=== PATIENT | female | born 1975 | race Caucasian/White ===

== ENCOUNTER → 2020-11-24 12:50 | Outpatient (CLI) | payer BC, SELFPAY ==
--- NOTE | ~2020-11-24 | MM_ITS ---
EXAMINATION: MM screening isabel BI w rohit HISTORY: Screening mammogram TECHNIQUE: Craniocaudal and mediolateral oblique 3-D tomosynthesis images were obtained and synthetic 2-D images were generated. CAD analysis was submitted and interpreted. COMPARISON: No prior mammogram is available for comparison at this institution. BREAST PARENCHYMAL COMPOSITION: The breasts are almost entirely fatty. FINDINGS: There is a circumscribed 5 mm bilobed opacity in the lower outer right breast. Approximately 3 and 3.5 mm circumscribed opacities are noted at mid depth in the mid to upper upper o uter right breast. Otherwise there is no evidence of suspicious mass, calcification, or architectural distortion to sugg est malignancy in either breast. IMPRESSION: 1. Right breast masses 2. Diagnostic right mammogram and right breast ultrasound examination are recommended. BI-RADS Category 0: Incomplete: Needs additional imaging evaluation. Reviewed, dictated and finalized at location A. IMPRESSION: 1. Right breast masses 2. Diagnostic right mammogram and right breast ultrasound examination are recom mended. BI-RADS Category 0: Incomplete: Needs additional imaging evaluation.
== END ==
PROVIDERS: Visit Provider Obstetrics & Gynecology
DX: Z12.31 Encounter for screening mammogram for malignant neoplasm of breast (principal); R92.8 Other abnormal and inconclusive findings on diagnostic imaging of breast
CPT/HCPCS: 77063; 77067

== ENCOUNTER → 2020-12-27 08:16 | Outpatient (CLI) | payer BC, SELFPAY ==
--- NOTE | ~2020-12-27 | MMUS_ITS ---
EXAMINATION: MM diagnostic isbael RT w rohit, US breast RT limited HISTORY: Right breast masses on screening mammogram TECHNIQUE: Additional 3-D tomosynthesis images of the right breast were performed and synthetic 2-D i mages were generated. CAD analysis was submitted and interpreted. High resolution limited right breas t ultrasound was performed. COMPARISON: 11/24/2020 BREAST PARENCHYMAL COMPOSITION: There are scattered areas of fibroglandular density. FINDINGS: MAMMOGRAPHIC FINDINGS: There is a 6 mm oval, equal density mass in the anterior third of the outer breast at the 9:00 locati on 2.5 cm from the nipple which appears to demonstrate central fat. A 7 mm x 3 mm oval mass is presen t in the middle third of the upper outer quadrant of the breast at the 10:00 location 7.5 cm from the nipple which appears to be fat-containing as well. No suspicious calcification or architectural dist ortion are identified. ULTRASOUND: There are masses at the 9:00 location 3 cm from the nipple and the 11:00 location 9.5 cm from the nip ple which corresponds to the mammographic findings and are consistent with intramammary lymph nodes. No suspicious cystic or solid mass is identified. IMPRESSION: 1. No mammographic or sonographic evidence of malignancy. 2. Recommend routine screening mammography in one year. BI-RADS Category 2: Benign finding(s). Reviewed, dictated and finalized at location A. IMPRESSION: 1. No mammographic or sonographic evidence of malignancy. 2. Recommend routine screening mammography in one year. BI-RADS Category 2: Benign finding(s).
== END ==
PROVIDERS: PCP Family Medicine; Visit Provider Obstetrics & Gynecology
DX: R92.8 Other abnormal and inconclusive findings on diagnostic imaging of breast (principal)
CPT/HCPCS: 76642; 77061; 77065; G0279

== ENCOUNTER → 2021-03-27 14:28 | Outpatient (CLI) | payer BC, SELFPAY ==
--- NOTE | ~2021-03-27 | XR_ITS ---
XR lumbar spine min 4V DATE: 03/27/2021 14:55 INDICATION: Low back pain TECHNIQUE: AP, lateral, coned lateral lumbosacral and bilateral oblique views COMPARISON: None FINDINGS: Monitor is mild loss of interspace height and mild degenerative spurring of the lumbar inte rspaces. No fracture or bone destruction. The included lower thoracic and lumbar pedicles are intact. No spond ylolysis or spondylolisthesis. The sacroiliac joints are normal. There is a prominent amount of fecal material in the colon. IMPRESSION: Mild degenerative disc disease Reviewed, dictated and finalized at location B.
== END ==
PROVIDERS: PCP Family Medicine; Visit Provider Family Medicine
DX: M47.816 Spondylosis without myelopathy or radiculopathy, lumbar region (principal)
CPT/HCPCS: 72110

== ENCOUNTER 2021-03-29 06:08 | Emergency (ER) | payer BC, SELFPAY ==
[2021-03-29 06:12] VITALS: BP 147/81; PULSE 98; RESP 16; TEMP 36.3; O2SAT 98
[2021-03-29] MEDS: KETOROLAC 30 MG/ML VIAL (*BKC) IM (07:21)
--- NOTE | 2021-03-29 07:58 | ED.BACK ---
HPI - Back Pain/Injury General Chief Complaint: Back Pain/Injury Stated Complaint: back pain Time Seen by Provider: 03/29/21 06:54 Source: patient History of Present Illness HPI Narrative: Patient presents with right-sided low back pain. Patient mirthas she was hiking over the weekend had no issues but then got in the car and drove home for 2 hours after the car ride she noted low back pain. Her symptoms got worse saw her primary care doctor had plain films which showed mild degenerative disc disease. Her primary care started her on muscle relaxers she is only taken 1 dose. She has been attempting Aleve and home stretches 1 time. Feels like her pain is getting worse that she will become evaluated. Her pain is achy, constant, worse with moving her back, no radiation. She denies recent spinal inspiration, IV drug use, major change in weight. Related Data Allergies Allergy/AdvReac Type Severity Reaction Status Date / Time No Known Allergies Allergy Verified 03/29/21 06:25 Review of Systems Review of Systems: CONSTITUTIONAL: Denies fever, chills, or sweats. EYES: Denies visual changes, redness, or discharge. ENT: Denies rhinorrhea, congestion, sore throat, or otalgia. CARDIOVASCULAR: Denies chest pain, palpitations, or edema. RESPIRATORY: Denies cough or dyspnea. GASTROINTESTINAL: Denies abdominal pain, nausea, vomiting, or diarrhea. GENITOURINARY: Denies dysuria or hematuria. SKIN: Denies rash or itching. MUSCULOSKELETAL: Denies joint pain, or myalgia. NEUROLOGIC: Denies headache, numbness, dizziness, or weakness. PSYCHIATRIC: Denies anxiety or depression. All systems reviewed & are unremarkable except as noted in HPI and below PMFSH Past Medical History Medical History Depression Hypothyroidism Family History Family History Mother Family history of bipolar disorder Father Hypertension Social History Social History Smoking status: Never smoker Second hand tobacco smoke exposure: No Alcohol intake: never Substance use: never Substance use type: does not use Gender identity (if verbalized by the patient): Female Exam Narrative: GENERAL: Well-appearing, well-nourished, and in no acute distress. HEAD: Normocephalic, atraumatic. EYES: PERRLA and EOMI. ENT: Nares clear, no rhinorrhea or epistaxis. Mucous membranes moist. NECK: Supple. No masses. No JVD BACK: Diffuse low back pain right with palpation most prominent in the right lumbar paraspinal area EXTREMITIES: Normal range of motion. No edema. SKIN: Warm, dry, no rash. NEURO: No focal deficits. Alert and oriented x3. PSYCH: Normal mood and affect. Course Reevaluation(s) Reevaluation #1: Patient ports feeling improved. Patient comfortable outpatient plan. Date: 03/29/21 Time: 07:58 Vital Signs Vital signs: Vital Signs Temperature 36.3 C L 03/29/21 06:12 Pulse Rate 98 03/29/21 06:12 Respiratory Rate 16 03/29/21 06:12 Blood Pressure 147/81 H 03/29/21 06:12 Pulse Oximetry 98 03/29/21 06:12 Temperature 36.3 C L 03/29/21 06:12 Pulse Rate 94 03/29/21 08:28 Respiratory Rate 17 03/29/21 08:28 Blood Pressure 123/91 H 03/29/21 08:28 Pulse Oximetry 99 03/29/21 08:28 MDM - Back Pain/Injury MDM Narrative Medical decision making narrative: H&P as above, vss, pt looks clinically well, exam without focal neurological deficits, labs/img considered, symptomatic relief available as needed, on reevaluation pt continues to looks clinically well. Suspect muscle strain, dns cauda equina, fracture, conus medullaris, cord compromise. plan to tx/monitor as op w/ pcm f/u findings/plan discussed with pt, pt agree/comfortable with plan, return precautions given Discharge Plan Discharge Clinical Impression: Low back pain Qualifiers: Chronicity: acute Back pain laterality:
[2021-03-29 08:28] VITALS: BP 123/91; PULSE 94; RESP 17; O2SAT 99
== END 2021-03-29 08:30 | disposition home or self-care (01) ==
PROVIDERS: Emergency Provider Emergency Medicine; PCP Family Medicine
DX: S39.012A Strain of muscle, fascia and tendon of lower back, initial encounter (principal); E03.9 Hypothyroidism, unspecified; X58.XXXA Exposure to other specified factors, initial encounter
CPT/HCPCS: 96372; 99283; J1885

== ENCOUNTER → 2023-03-03 12:16 | Outpatient (CLI) | payer OTHER, SELFPAY ==
--- NOTE | ~2023-03-03 | MM_ITS ---
EXAMINATION: MM screening isabel BI w rohit HISTORY: Screening TECHNIQUE: Craniocaudal and mediolateral oblique 3-D tomosynthesis images were obtained and synthetic 2-D images were generated. CAD analysis was submitted and interpreted. COMPARISON: Comparison to multiple prior studies sequentially, with oldest reviewed study dated 11/24. BREAST PARENCHYMAL COMPOSITION: There are scattered areas of fibroglandular density. FINDINGS: Stable appearance to benign-appearing lymph nodes outer aspect of the right breast. There i s no evidence of suspicious mass, calcification, or architectural distortion to suggest malignancy in either breast. There has been no suspicious interval change. IMPRESSION: 1. No mammographic evidence of malignancy. 2. Recommend routine screening mammography in one year. BI-RADS Category 1: Negative Reviewed, dictated and finalized at location A.
== END ==
PROVIDERS: PCP Family Medicine; Visit Provider Obstetrics & Gynecology
DX: Z12.31 Encounter for screening mammogram for malignant neoplasm of breast (principal)
CPT/HCPCS: 77063; 77067

== ENCOUNTER 2023-09-04 05:48 | Day surgery (SDC) | payer OTHER, SELFPAY ==
[2023-08-06 15:02] VITALS: BMI 29.7
[2023-08-21 14:05] VITALS: BMI 29.1
--- NOTE | 2023-09-03 10:54 | P.PNAN_ITS ---
Anes - Initial Pre Proc Eval Procedure: Operation Date: 09/04/23 07:30 Proposed Procedures p Screening Colonoscopy - Kirby Batista MD Date/Time: 09/03/23 10:54 Surgeon: Kirby Batista MD Pre Op Diagnosis: Neoplasm Screening Patient Data Age: 48 Gender: F Height: 1.63 m Weight: 77 kg Allergies Allergy/AdvReac Type Severity Reaction Status Date / Time No Known Allergies Allergy Verified 09/04/23 06:14 Home Medications Medication Instructions Recorded Confirmed Type levothyroxine 175 mcg tablet 175 mcg PO DAILY #90 tabs 06/10/23 09/04/23 Rx Patient hx anesthesia problems: none Family hx anesthesia problems: none Results Review: All pre-operative results and documents have been reviewed as part of the pre- operative evaluation. [facility] Past Medical History Medical History Depression Hypothyroidism Family History Family History Mother Family history of bipolar disorder Father Hypertension Social History Social History Smoking status: Never smoker Second hand tobacco smoke exposure: No Alcohol intake: never Substance use: never Substance use type: does not use Lack of Transportation: No Lack of Food: Never True Current Housing: I Have Housing Concerned About Future Housing: No Difficulty Paying Gas/Electric Bills: No Difficulty Paying for Meds: No Currently Unemployed: No Education: Bachelor's Degree Difficulty w/ Childcare or Family Care: No Living arrangements: with family Gender identity (if verbalized by the patient): Female Spiritual care concerns: No Anes - Eval Final PreProcedure Day of Procedure 09/03/23 10:54 Patient weight: overweight Heart: regular rate and rhythm Lungs: clear to auscultation Airway: Mallampati scale class II Neurological: alert and oriented Last oral intake: >/= 8 hours ASA classification: II Emergent: no Anesthetic plan: proceed Anesthesia type and monitoring: general GIVS and standard monitoring Results Review: All pre-operative results and documents have been reviewed as part of the pre-o perative evaluation. Informed Consent: The patient's anesthetic plan and its attendant risks and benefits were discussed with the patient/family/POA. Questions were solicited and answers provided to the satisfaction of the patient/family/POA.
[2023-09-04 06:21] VITALS: BP 135/84; PULSE 86; RESP 16; TEMP 37.3; O2SAT 100; BMI 29.7
[2023-09-04] MEDS: LACTATED RINGERS 1,000 ML 150 ML IV CONT (06:36)
--- NOTE | 2023-09-04 07:07 | PM.HPGS ---
History of Present Illness History of Present Illness Consent: Risks, benefits, and alternatives have been discussed and questions answered. Patient agrees to proceed with procedure. Chief complaint: Neoplasm Screening Narrative: Harpal Felton is a 48 year old female colonoscopy. Patient's current weight appetite at this are normal. She denies abdominal pain. She has had no bleeding. Family history significant her brother had colon polyps. Review of Systems Review of Systems: Review of systems noncontributory. PMFSH Past Medical History Medical History Depression Hypothyroidism Family History Family History Mother Family history of bipolar disorder Father Hypertension Social History Social History Smoking status: Never smoker Second hand tobacco smoke exposure: No Alcohol intake: never Substance use: never Substance use type: does not use Lack of Transportation: No Lack of Food: Never True Current Housing: I Have Housing Concerned About Future Housing: No Difficulty Paying Gas/Electric Bills: No Difficulty Paying for Meds: No Currently Unemployed: No Education: Bachelor's Degree Difficulty w/ Childcare or Family Care: No Living arrangements: with family Gender identity (if verbalized by the patient): Female Spiritual care concerns: No Meds Home Medications and Allergies Home Medications Medication Instructions Recorded Confirmed Type levothyroxine 175 mcg tablet 175 mcg PO DAILY #90 tabs 06/10/23 09/04/23 Rx Allergies Allergy/AdvReac Type Severity Reaction Status Date / Time No Known Allergies Allergy Verified 09/04/23 06:14 Vital Signs Vital Signs - 24 hr 09/04/23 06:21 Temperature 99.2 F Pulse Rate 86 Respiratory Rate 16 Blood Pressure 135/84 Pulse Oximetry 100 Oxygen Delivery Room Air Exam Narrative: Physical exam reveals patient to be alert. Vital signs stable. HEENT exam is unremarkable. Patient is anicteric.Lungs are clear to auscultation and percussion. Heart is without murmur or extra sounds. Abdomen bowel sounds are present soft nontender with no hepatosplenomegaly. Digital , external exam is normal. Assessment and Plan Assessment and plan (1) Encounter for screening colonoscopy: Code(s): Z12.11 - Encounter for screening for malignant neoplasm of colon Status: Acute Assessment and Plan: Patient presents today for screening colonoscopy. Further recommendations may be given after exam.
[2023-09-04 07:40] VITALS: BP 106/67; PULSE 80; RESP 18; O2SAT 100
[2023-09-04 07:50] VITALS: BP 110/71; PULSE 74; RESP 16; O2SAT 100
[2023-09-04 08:00] VITALS: BP 119/72; PULSE 74; RESP 16; O2SAT 100
--- NOTE | 2023-09-04 11:09 | WPDANESPN ---
Anes - Prog Note Post-Op Date/Time: 09/04/23 11:09 Cardiovascular status: normal Respiratory status: normal Airway patency: baseline Mental status: baseline Post-Op hydration status: normal Vital Signs: Last Vital Signs Temp 37.3 C 09/04/23 06:21 Pulse 74 09/04/23 08:00 Resp 16 09/04/23 08:00 BP 119/72 09/04/23 08:00 Pulse Ox 100 09/04/23 08:00 O2 Del Method Room Air 09/04/23 08:00 Pain Score (VAS): 0 I/O: Intake & Output 09/03/23 09/04/23 09/04/23 23:59 07:59 15:59 Intake Total 400 Balance 400 Post-procedural complaints: none Patient Feedback: Patient satisfied with anesthetic care. Other Findings: Patient vital signs back to baseline. Patient denies nausea and vomiting. Patient's pain under control. Patient OK for discharge.
== END 2023-09-04 08:06 | disposition home or self-care (01) ==
PROVIDERS: PCP Physician Assistant; Visit Provider Internal Medicine Gastroenterology
PROC: 0DJD8ZZ Inspection of Lower Intestinal Tract, Via Natural or Artificial Opening Endoscopic (ICD-10-PCS; CPT 45378; principal; 2023-09-04 07:30)
DX: Z12.11 Encounter for screening for malignant neoplasm of colon (principal); Z83.718 Family history of other colon polyps
CPT/HCPCS: 45378

== ENCOUNTER 2024-03-17 15:17 | Emergency (ER) | payer OTHER, SELFPAY ==
--- NOTE | 2024-03-17 15:21 | ED.BACK ---
HPI - Back Pain/Injury General Chief Complaint: Urogenital-Female Stated Complaint: Back Pain Time Seen by Provider: 03/17/24 15:20 Source: patient Mode of arrival: ambulatory Limitations: no limitations History of Present Illness HPI Narrative: Patient is a 48-year-old female who presents with right low back pain that started week ago after doing heavy lifting. Patient treated for muscle strain and symptoms improved. Patient states Friday symptoms returned. Got better throughout the day. Patient has hx of kidney stones. Denies any blood in urine, frequency, burning with urination. Patient states she drinks large amounts of water. Related Data Allergies Allergy/AdvReac Type Severity Reaction Status Date / Time No Known Allergies Allergy Verified 03/17/24 15:25 Review of Systems Review of Systems: All systems reviewed & are unremarkable except as noted in HPI and below Constitutional: Constitutional: Denies body ache(s), Denies chills, Denies fatigue, Denies fever(s), Denies headache(s), Denies malaise and Denies weakness Eyes: Eyes: Denies blurry vision, Denies irritation and Denies loss of vision ENT: Denies otalgia, Denies headache(s), Denies nasal discharge, Denies sinus pain and Denies sore throat Cardiovascular: Cardiovascular: Denies chest pain, Denies irregular heart rhythm and Denies dyspnea Respiratory: Respiratory: Denies dyspnea Gastrointestinal: Gastrointestinal: Denies abdominal pain, Denies melena, Denies hematochezia, Denies diarrhea, Denies nausea and Denies vomiting Musculoskeletal: Musculoskeletal: Reports back pain, Denies myalgias and Denies arthralgias Integumentary/Breasts: Skin/Breast: Denies pruritus and Denies rash Neurologic: Denies headache(s), Denies loss of vision and Denies weakness Psychiatric: Psychiatric: Reports no additional psychiatric complaints Endocrine: Endocrine: Denies fatigue PMFSH Past Medical History Medical History Depression Hypothyroidism Family History Family History Mother Family history of bipolar disorder Father Hypertension Social History Social History Smoking status: Never smoker Second hand tobacco smoke exposure: No Alcohol intake: never Substance use: never Substance use type: does not use Lack of Transportation: No Lack of Food: Never True Current Housing: I Have Housing Concerned About Future Housing: No Difficulty Paying Gas/Electric Bills: No Difficulty Paying for Meds: No Currently Unemployed: No Education: Bachelor's Degree Difficulty w/ Childcare or Family Care: No Living arrangements: with family Gender identity (if verbalized by the patient): Female Spiritual care concerns: No Comments At time of signature, agree with nursing past medical, surgical, social and family history. There is no relevant family history pertinent to the presenting complaint. Exam Const: General: cooperative, healthy appearing, comfortable, no acute distress and well nourished Nutritional Appearance: well nourished Orientation/consciousness: patient oriented x3 Limitations: no limitations HENMT: Head: normal to inspection, normocephalic and atraumatic Ears: hearing grossly normal bilaterally and external ears normal Face/Nose/Sinus: Normal external nose present, normal facial exam and face symmetric Face and sinus: normal facial exam and face symmetric Mouth: Yes lip normal Eyes: General: appearance normal, both eyes and all related structures Alignment and Position: alignment normal and position normal Periorbital: periorbital findings normal Eyelids: eyelids normal Pupils: Equal, round and reactive pupils present EOM: EOMs intact bilaterally Neck: Neck: normal visual inspection, full ROM and supple Chest: Chest palpation & inspection: normal insp
[2024-03-17 15:29] VITALS: BP 161/79; PULSE 95; RESP 18; TEMP 36.9; O2SAT 100
[2024-03-17 15:38] LABS: EDUAAPPEAR Cloudy; EDUABILI Negative (Negative); EDUABLOOD Negative (Negative); EDUACOLOR1 Yellow; EDUAGLUCOSE Trace (Negative); EDUAKETONE Negative (Negative); EDUALEUKO Trace (Negative); EDUANITRATE Negative (Negative); EDUAPH 6.5; EDUAPROTEIN Negative (Negative); EDUAUROBILI 0.2
== END 2024-03-17 16:22 | disposition home or self-care (01) ==
PROVIDERS: Emergency Provider Nurse Practitioner Family; PCP Family Medicine
DX: S39.012A Strain of muscle, fascia and tendon of lower back, initial encounter (principal); X58.XXXA Exposure to other specified factors, initial encounter; N30.00 Acute cystitis without hematuria; E03.9 Hypothyroidism, unspecified
CPT/HCPCS: 81003; 99213; G0463

== ENCOUNTER 2024-07-23 08:10 | Emergency (ER) | payer OTHER, SELFPAY ==
[2024-07-23 08:23] VITALS: BP 127/82; PULSE 75; RESP 16; TEMP 35.6; O2SAT 100
--- NOTE | 2024-07-23 08:25 | ED_ITS ---
HPI - URI/Sore Throat General Stated Complaint: cough,night sweats Time Seen by Provider: 07/23/24 08:25 Source: patient, RN notes reviewed and old records reviewed Mode of arrival: ambulatory Limitations: no limitations History of Present Illness HPI Narrative: Patient presents with complaints of flu-like symptoms for approximately 1 week, night sweats and cough for 2 nights. Reports that this morning while in the shower she had a syncopal episode, reports that her heard a ?thud? and came to check on her. She reports that upon awakening she felt better, denies any injury. No deficits. Related Data Allergies Allergy/AdvReac Type Severity Reaction Status Date / Time No Known Allergies Allergy Verified 03/17/24 15:25 Review of Systems Review of Systems: All systems reviewed & are unremarkable except as noted in HPI and below Constitutional: Constitutional: Reports no additional constitutional complaints, Reports excessive sweating and Reports lethargy ENT: Reports system reviewed and no additional complaints, except as documented Cardiovascular: Cardiovascular: Reports no additional cardiovascular complaints Respiratory: Respiratory: Reports no additional respiratory complaints, Reports chest congestion and Reports cough Gastrointestinal: Gastrointestinal: Reports no additional gastrointestinal complaints Neurologic: Reports syncope [facility] Past Medical History Medical History Depression Hypothyroidism Family History Family History Mother Family history of bipolar disorder Father Hypertension Social History Social History Smoking status: Never smoker Second hand tobacco smoke exposure: No Alcohol intake: never Substance use: never Substance use type: does not use Lack of Transportation: No Lack of Food: Never True Current Housing: I Have Housing Concerned About Future Housing: No Difficulty Paying Gas/Electric Bills: No Difficulty Paying for Meds: No Currently Unemployed: No Education: Bachelor's Degree Difficulty w/ Childcare or Family Care: No Living arrangements: with family Gender identity (if verbalized by the patient): Female Spiritual care concerns: No Comments At the time of my signature, I reviewed and agree with the nursing past medical, surgical, social, and family history. There is no relevant family history pertinent to the patient complaint. Exam Const: General: cooperative, no acute distress, alert and awake Orientation/consciousness: oriented to person, oriented to place and oriented to time HENMT: Head: normal to inspection Resp: Effort & Inspection: normal respiratory effort and able to speak in complete sentences Neuro: General: oriented to person, oriented to place and oriented to time Cranial nerves: Yes CN's II-XII intact bilaterally Cognition (Neuro): normal cognition Speech: normal speech Gait exam (Neuro): Normal gait present Psych: Appearance: grossly normal Thought process: Normal thought process present Insight: Good insight present (Psych) Judgement: Good judgement present (Psych) Course Course Level of Care: Express Care Visit Vital Signs Vital signs: Vital Signs Temperature 96.1 F L 07/23/24 08:23 Pulse Rate 75 07/23/24 08:23 Respiratory Rate 16 07/23/24 08:23 Blood Pressure 127/82 07/23/24 08:23 Pulse Oximetry 100 07/23/24 08:23 Oxygen Delivery Room Air 07/23/24 08:23 Temperature 96.1 F L 07/23/24 08:23 Pulse Rate 75 07/23/24 08:23 Respiratory Rate 16 07/23/24 08:23 Blood Pressure 127/82 07/23/24 08:23 Pulse Oximetry 100 07/23/24 08:23 Oxygen Delivery Room Air 07/23/24 08:23 Reviewed Transfer Transfered to: [facility] Transportation: Other (Private vehicle, driven by ) Transfer rationale: Syncopal episode, needs higher level of care Accepting physician: Thomas MDM - URI/Sore Throat MDM Narrative Medical decision making narrative: Patient with flu-like symptoms for 1 week, syncopal episode this morning. Transferred to emergency department for further workup Differential Diagnosis Differential diagnosis: Likely upper respiratory infection, viral infection and influenza Medical Records Attestation: I reviewed the patient's medical records. Discharge Plan Discharge Clinical Impression: Syncope Qualifiers: Syncope type: unspecified Qualified Code(s): R55 - Syncope and collapse Patient Disposition: Acute Care Hospital Condition: Stable Instructions: Antibiotic Form Patient Language: Maltese Prescriptions: No Action prednisone 20 mg tablet 40 mg PO DAILY 5 Days Qty: 10 0RF baclofen 10 mg tablet 10 mg PO BID Qty: 10 0RF nitrofurantoin monohyd/m-cryst 100 mg capsule 100 mg PO Q12H 5 Days Qty: 10 0RF Rx Instructions: must administer with a meal/food lidocaine 5 % adhesive patch,medicated 1 patch topical DAILY Qty: 15 0RF Rx Instructions: leave on most painful area for up to 12 hrs levothyroxine 175 mcg tablet 175 mcg PO DAILY Qty: 90 2RF Follow-up/Referrals: Francoise Phan MD [Primary Care Provider] - Time of Disposition: 08:48
== END 2024-07-23 08:40 | disposition short-term general hospital (02) ==
PROVIDERS: Emergency Provider Nurse Practitioner Family; PCP Family Medicine
DX: R55 Syncope and collapse (principal); E03.9 Hypothyroidism, unspecified
CPT/HCPCS: 99212; G0463

== ENCOUNTER 2024-07-23 08:59 | Emergency (ER) | payer OTHER, SELFPAY ==
[2024-07-23] VITALS (9 sets, daily range): BP systolic 131–161; BP diastolic 70–96; PULSE 68–89; RESP 14–18; TEMP 36.5–36.7; O2SAT 98–100
--- NOTE | ~2024-07-23 | XR_ITS ---
EXAMINATION: XR chest 2V DATE: 07/23/2024 12:34 INDICATION: Syncope, fever, body aches and chills TECHNIQUE: PA and lateral views of the chest were obtained. COMPARISON: None FINDINGS: The lungs are clear with no focal airspace opacities, pulmonary edema, pleural effusion or pneumothor ax. The cardiomediastinal silhouette is normal. Mild thoracic spondylosis. IMPRESSION: 1. No acute cardiopulmonary disease. Reviewed, dictated and finalized at location B. NIC CONDITION NURSE
--- OUTSIDE RECORDS SUMMARY | 2024-07-23 09:21 | XMS_ITS | Data Portability ---
Author Organization [facility] Address [address] [place] [place] [address] Care Team Providers Care Furnace Helper Name Role Phone CL GALLO Primary Care Provider Assessment Encounter Date Assessment Date Assessment LastModified by Organization Details LastModified Time 11/07/2020 11/07/2020 healthy female exam patient declines std testing pap done- LEEP in 2015 mammogram ordered and encouraged contraceptionc ondomsm FU 1 year or prn [email or web address] Not available 11/08/2020 09:39:35 08/30/2022 08/30/2022 healthy female exam patient declines std testing pap done, if normal may do q 3 mammogram ordered and encouraged discussed colonoscopy rec, pt to discuss with PCP contraception- condoms FU 1 year or prn [email or web address] Not available 09/09/2022 21:50:28 Plan of Treatment Reminders Order Date Submit Date Provider Last Modified By Organization Details Last Modified Time Details Appointments None record ed. Lab None record ed. Referral None record ed. Procedures None record ed. Surgeries None record ed. Imaging None record ed. Medication Orders None record ed. Patient TargetsNo targets recorded. Patient InstructionsNo instructions recorded. Reason for Referral None Reported. Results Created Date Observation Date Name Description Value Unit Range Abnormal Flag Note LastModifiedBy Organization Detail LastModifiedTime 11/10/19 21 11/09/2020 pap, IG + HR HPV image guided Pap, HPV regardless of Pap result SEE RESULT S BELOW CASE REPOR T: Cytol ogy Gynec ologi laura Repor t Case: [id number] Autho gita bueno Provi jackie: Melanie Naylor MD Colle cted: 11/09 1642 Order ing Locat ion: [place] [facility] log[place]jah Recei kathryn: 11/10 0045 First Scree n: Miller velasquez Laura Speci men: Scree jose g Pap - Image d, Cervi x STATE MENT OF ADEQU ACY: Satis facto ry for evalu ation Trans forma tion zone compo nent absen t FINAL DIAGN OSIS: Negat merissa for Intra epith elial Lesio n or Malig nathanael Elect antonia villarreal reji d by Laura Cope on 2020 at 2:24 PM ----- ----- ----- ----- ----- ----- ----- ----- ----- ----- ----- ----- ----- ----- ----- ----- ----- ---- HPV RESUL TS: HPV mRNA E6/E7 : No HPV mRNA Detec tarun NOTE: This high risk HPV mRNA assay detec ts fourt een high- risk HPV types (16, 18, 31, 33, 35, 39, 45, 51, 52, 56, 58, 59, 66, 68) witho ut diffe renti ation . CHART ABLE COMME NT: Note: This speci men was revie wed by a Cytot echno logis t and/o r Patho logis t (as indic ated in this repor t) after evalu ation using the Thinp rep Imagi ng Syste m. CLINI LAURA INFOR MATIO N: Menst rual Statu s: LMP (if appli cable ): Clini laura Histo ry/Pr eviou s Pap: Type of Neopl latasha (if appli cable ): Other Histo ry: Hormo maite (if appli cable ): PAP EDUCA ALE L NOTE: The Pap Test is a scree jose g test with an inher ent false negat merissa rate. Liqui d-bas e sampl ing may decre ase, but will not elimi ulisses, false negat merissa resul ts. A negat merissa resul t does not precl ude the prese nce and/o r devel opmen t of disea se, since the prese nce of abnor mal cells in the sampl e depen ds on the locat ion of the jonaio n and sampl ing techn ique. Cristopher nued regul ar gayle araiza is the best metho d of cance r preve ntion . If repor tarun cytol ogic findi ng do not corre late with physi laura and/o r histo rical findi ngs, furth er inves tigat ion is recom lyly d, as clini rob juan nted. Not Available [facility] (Lab) [address], [place], [address], 11/10/2020 15:27:07 08/31/19 23 08/30/2022 IMAGE GUIDE D PAP AND HPV REGAR DLESS image guided Pap, HPV regardless of Pap result SEE RESULT S BELOW CASE REPOR T: Cytol ogy Gynec ologi laura Repor t Case: [id number] Autho gita bueno Provi jackie: Melanie Naylor MD Colle cted: 08/30 1553 Order ing Locat ion: [place] Patho logy Recei kathryn: 09/02 0835 First Gayle n: Jorge Oliveros am, CT Speci men: Gayle araiza Pap - Image d, Cervi x STATE MENT OF ADEQU ACY: Satis facto ry for evalu ation Trans forma tion zone compo nent prese nt FINAL DIAGN OSIS: Negat merissa for Intra epith elial Justus herzog or Bernabe huffman (NIL) . Elect antonia villarreal reji d by Jorge Oliveros am, CT on 2022 at 9:23 AM ----- ----- ----- ----- ----- ----- ----- ----- ----- ----- ----- ----- ----- ----- ----- ----- ----- ---- HPV RESUL TS: HPV mRNA E6/E7 : No HPV mRNA Detec tarun NOTE: This high risk HPV mRNA assay detec ts fourt een high- risk HPV types (16, 18, 31, 33, 35, 39, 45, 51, 52, 56, 58, 59, 66, 68) witho ut diffe renti ation . COMME NT: This speci men was revie wed by a Cytot echno logis t and/o r Patho logis t (as indic ated in this repor t) after evalu ation using the Thinp rep Imagi ng Syste m. CLINI LAURA INFOR MATIO N: Menst rual Statu s: LMP (if appli cable ): Clini laura Histo ry/Pr eviou s Pap: Type of Neopl latasha (if appli cable ): Signi fican t Clini laura Findi ngs: Other Histo ry: Hormo maite (if appli cable ): PAP EDUCA ALE L NOTE: The Pap Test is a scree jose g test with an inher ent false negat merissa rate. Liqui d-bas ed sampl ing may decre ase, but will not elimi ulisses, false negat merissa resul ts. A negat merissa resul t does not precl ude the prese nce and/o r devel opmen t of disea se, since the prese nce of abnor mal cells in the sampl e depen ds on the locat ion of the lesio n and sampl ing techn ique. Cristopher nued regul ar scree jose g is the best metho d of cance r preve ntion . If repor tarun cytol ogic findi ng do not corre late with physi laura and/o r histo rical findi ngs, furth er inves tigat ion is recom lyly d, as clini rob martinez nted. Not Available [facility] (Lab) [address], [place], [address], 09/04/2022 10:26:16 11/25/19 21 11/24/2020 MAMMO , scree jose g, bilat eral No observ ation record ed. J[facility] [address], [place], [address], 11/29/2020 09:21:11 11/25/19 21 11/24/2020 MAMMO , scree jose g, bilat eral No observ ation record ed. layran [facility] [address], [place], [address], 11/28/2020 14:34:50 12/28/19 21 12/27/2020 MAMMO , diagn ostic , digit al, unila teral No observ ation record ed. [facility] [address], [place], [address], 12/28/2020 15:47:59 03/03/20 23 03/03/2023 MAMMO , scree jose g, bilat eral No observ ation record ed. [email or web address] [facility] [address], [place], [address], 04/14/2023 14:23:31 Result Notes None recorded. Problems Name Problem SNOMED Code Status Onset Date Resolution Date Notes Provider Name and Address Organization Details Recorded Time Pregnanc y test negative 373008239 Completed 201811/07/2020 Encounte r for pregnanc y test, result negative ;Practic e ID: 0001 Melanie Montgomery MD [address], [place], [address], [facility] 1 17:38:16 Atypical squamous cells of undeterm ined signific ance on cervical Papanico laou smear 165428283 Active 2018 Atyp squam cell of undet signfc cyto smr crvx (ASC-US) ;Practic e ID: 0001 Not Available [facility] 0 18:59:16 Human papillom avirus deoxyrib onucleic acid detected , high risk on cervical specimen 216953490 Active 2018 Cervical high risk HPV DNA test positive ;Practic e ID: 0001 Not Available [facility] 0 18:59:16 Finding of menstrua l bleeding Completed 201811/07/2020 Excessiv e and frequent menstrua tion with regular cycle;Pr actice ID: 0001 Melanie Montgomery MD [address], [place], [address], [facility] 1 17:37:59 Screenin g for malignan t neoplasm of rectum Completed 201811/07/2020 Encounte r for screenin g for malignan t neoplasm of rectum;P ractice ID: 0001 Melanie Montgomery MD [address], [place], [address], [facility] 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 1 17:38:27 Low risk human papillom avirus deoxyrib onucleic acid detected in specimen from cervix [id number] 0688726 Completed 201611/07/2020 Cervical low risk HPV DNA test positive ;Practic e ID: 0001 Melanie Montgomery MD [address], [place], [address], [facility] 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 1 17:38:13 Speciali zed medical examinat ion Completed 201211/07/2020 Routine gynecolo gical examinat ion;Prac tran ID: 0001 Melanie Montgomery MD [address], [place], [address], [facility] 17:38:29 Screenin g for malignan t neoplasm of cervix Completed 201111/07/2020 Pap Smear;Pr actice ID: 0001 Melanie Montgomery MD [address], [place], [address], [facility] 17:38:19 Acquired deformit y of neck 74360425 Completed 201511/07/2020 Acquired deformit y of neck;Rec orded Elsewher e: No [facility] S ource: EHR Securities Adviser marilyn: N Practi ce ID: 0001 Colten lable Time: 09:30:00 AM Melanie Montgomery MD [address], [place], [address], [facility] 17:37:40 Microsco pic hematuri a 394967880 Completed 201511/07/2020 Other microsco pic hematuri a;Practi ce ID: 0001 Melanie Montgomery MD [address], [place], [address], [facility] 17:38:10 Finding of pattern of menstrua l cycle 136726110 Completed 201511/07/2020 Excessiv e and frequent menstrua tion with irregula r cycle;Pr actice ID: 0001 Melanie Montgomery MD [address], [place], [address], [facility] 05/25/202 1 17:38:01 Adult health examinat ion Completed 201311/07/2020 Routine general medical examinat ion at a health care facility ;Practic e ID: 0001 Melanie Montgomery MD [address], [place], [address], [facility] 17:37:[address] Concept Completed 201811/07/2020 Encntr for general adult medical exam w/o abnormal findings ;Recorde d Elsewher e: No Locat ion: [facility] S ource: EHR Securities Adviser marilyn: N Practi ce ID: 0001 Colten lable Time: 03:00:00 PM Melanie Montgomery MD [address], [place], [address], [facility] 17:38:24 Amenorrh ea 35238010 Completed 201311/07/2020 Amenorrh ea;Recor ded Elsewher e: No Locat ion: [facility] S ource: EHR Securities Adviser marilyn: N Practi ce ID: 0001 Colten lable Time: 10:30:00 AM Melanie Montgomery MD [address], [place], [address], [facility] 17:37:44 Body mass index 30+ - obesity 850968588 Completed 201711/07/2020 Body mass index (BMI) 32.0-32. 9, adult;Re corded Elsewher e: No Locat ion: [facility] S ource: EHR Securities Adviser marilyn: N Practi ce ID: 0001 Colten lable Time: 04:30:00 PM Melanie Montgomery MD [address], [place], [address], [facility] 17:37:47 Speciali zed medical examinat ion Completed 201108/11/2012 Gynecolo gical Examinat ion;Girma rded Elsewher e: No Locat ion: [facility] S ource: EHR Securities Adviser marilyn: N Bassem ce ID: 0001 Colten lable Time: 09:30:00 AM Melanie Montgomery MD [address], [place], [address], [facility] 17:38:29 History of loop electros urgical excision procedur e 9368219295 9102 Active 2020 Melanie Montgomery MD [address], [place], [address], [facility] 09:39:22 Problem Notes None recorded. Procedures Surgical History Date Name Laterality Status Provider Name and Address Organization Details Recorded Time 1 Date of Last Pap Smear completed [facility] 08/30/2022 16:25:15 1 Date of Last Mammogram completed [facility] 08/30/2022 16:10:32 [address] [facility] 11/07/2020 17:29:47 Imaging Results Imaging Date Name Status LastModified by Organiz ation Details LastModified Time 11/24/2020 MAMMO, screening, bilateral completed [facility] [address], [place], [address], 11/29/2020 09:21:11 11/24/2020 MAMMO, screening, bilateral completed [facility] [address], [place], [address], 11/28/2020 14:34:50 12/27/2020 MAMMO, diagnostic, digital, unilateral completed [facility] [address], [place], [address], 12/28/2020 15:47:59 03/03/2023 MAMMO, screening, bilateral completed [address] [facility] [address], [place], [address], 04/14/2023 14:23:31 Procedure Notes None recorded. Medical Equipment None Reported. Medications Name Sig Start Date Stop Date Status Note LastModified by Organization Details LastModified Time levothyro xine 175 mcg tablet active Not Available Not Available Not Available levothyro xine 137 mcg tablet TAKE ONE TABLET BY MOUTH EVERY DAY 03/15 completed Prescrib ed Elsewher e: No Locat ion: [facility] odify By: sudha berry DateTime : 02/26/20 14 03:21:51 PM Not Available Not Available Not Available Zoloft 50 mg tablet TAKE ONE TABLET BY MOUTH DAILY 06/26 completed Prescrib ed Elsewher e: No Locat ion: [facility]ify By: miguel angel echeverria DateTime : 06/18/19 08:50:37 AM Not Available Not Available Not Available Prozac 10 mg capsule take 2 capsule by oral route every day 08/30 completed Prescrib ed Elsewher e: Yes Loca tion: [facility] By: arabella echeverria DateTime : 09/02/19 03:00:00 PM Not Available Not Available Not Available Vitamin D2 1,250 mcg (50,000 unit) capsule take 1 capsule by oral route every week 11/07 completed Prescrib ed Elsewher e: Yes Loca tion: [facility]ify By: arabella chávezuntoleg DateTime : 09/02/19 03:00:00 PM Not Available Not Available Not Available sertralin e 20 mg/mL oral concentra te take 2.5 millilit er by oral route every day and mix with 4 oz. (1/2 cup) of water, dev sami, lemon/li me soda, lemonade or orange juice ONLY 06/20 completed Prescrib ed Elsewher e: Yes Loca tion: [facility]ify By: domingo romo DateTime : 06/15/20 11 03:52:32 PM Not Available Not Available Not Available amoxicill in 500 mg-potass ium clavulana te 125 mg tablet 11/07 completed Not Available Not Available Not Available iron 325 mg (65 mg iron) tablet take 1 tablet by oral route every day 11/07 completed Prescrib ed Elsewher e: Yes Loca tion: [facility]ify By: arabella echeverria DateTime : 09/02/19 19 03:00:00 PM Not Available Not Available Not Available DANY (28) 3 mg-0.02 mg tablet take 1 tablet by oral route every day 02/17 completed Prescrib ed Elsewher e: No Locat ion: [facility]ify By: tan berry DateTime : 08/11/19 13 10:00:00 AM Not Available Not Available Not Available Fish Oil 360 mg-1,200 mg capsule 09/19 completed Prescrib ed Elsewher e: Yes Loca tion: [facility]ify By: alyse chacon DateTime : 06/15/20 11 03:52:32 PM Not Available Not Available Not Available Tirosint 125 mcg capsule take 1 capsule (125MCG) by oral route every day 01/25 completed Prescrib ed Elsewher e: No Locat ion: [facility]ify By: cmedical Encount er DateTime : 05/26/20 12 01:42:43 PM Not Available Not Available Not Available Tirosint 88 mcg capsule take 1 capsule (88MCG) by oral route every day 08/11 completed Prescrib ed Elsewher e: No Locat ion: [facility] odify By: tan berry DateTime : 06/15/20 11 03:52:32 PM Not Available Not Available Not Available Tirosint 150 mcg capsule take 1 capsule by oral route every day 06/26 completed Prescrib ed Elsewher e: No Locat ion: [facility]ify By: miguel angel echeverria DateTime : 03/18/20 17 02:57:13 PM Not Available Not Available Not Available Tirosint 137 mcg capsule take 1 capsule (137MCG) by oral route every day 01/25 completed Prescrib ed Elsewher e: No Locat ion: [facility]ify By: cmearian Quiñonezt er DateTime : 01/09/20 13 04:28:22 PM Not Available Not Available Not Available Lysteda 650 mg tablet take 2 tablet by oral route 3 times every day during menses 11/07 completed Prescrib ed Elsewher e: No Locat ion: [facility] By: domingo tz Encou nter DateTime : 09/02/19 03:00:00 PM Not Available Not Available Not Available Vitals Date Recorded Body height Body mass index (BMI) Body weight Systolic blood pressure Diastolic blood pressure Systolic blood pressure Diastolic blood pressure Provider Name and Address Organization Details Last Updated DateTime 1 162.56 cm 29.9 kg/m2 67237.0 7 g 149 mm[Hg] 90 mm[Hg] 132 mm[Hg] 82 mm[Hg] [facility] 1 17:34:31 Date Recorded Body height Body mass index (BMI) Body weight Systolic blood pressure Diastolic blood pressure Systolic blood pressure Diastolic blood pressure Provider Name and Address Organization Details Last Updated DateTime 3 162.56 cm 29.7 kg/m2 73961.4 8 g 166 mm[Hg] 83 mm[Hg] 150 mm[Hg] 88 mm[Hg] [facility] 3 16:08:13 Social History None recorded. Functional Status None recorded. Mental Status None recorded. Family History Nothing Reported Notes:Brother: Thyroid disea se Father: Hypertension, cholesterol problems Maternal grandfather: Cancer, colon Mother: psychiatric disease Paternal grandfather: Cancer, colon Medical History Condition Response Allergies (Food, seasonal, environmental ) N Other N Drug/Latex Allergies/Reactions N Breast Cancer N Blood Transfusion N Lung Disease N Dermatologic Disorders N Defects or Inherited Disease N Breast Problem N Gestational Diabetes N Hematologic disorders N Anesthesia Complications N History of STI N Deep Vein Thrombosis N Polycystic ovary syndrome N Anxiety Disorder N Autoimmune disease N Arthritis N Polyps N Infertility N History of abnormal pap N Acid Reflux (GERD) N Cancer N Varicosities N Stroke N Neurologic/Epilepsy N Endometriosis N High Cholesterol N Headaches N Fibromyalgia N Kidney Disease N Heart Problems N Thyroid Problems Y Kidney or Bladder Problems N GI Problems N Eating Disorder N Anemia N Art (IVF or FET) N Psychiatric Illness N Ovarian Cancer N Diabetes N Pulmonary (TB, Asthma) N Hepatitis/Liver Disease N No Past Medical History N Eczema N Urinary Tract Infection N Abuse/Domestic Violence N Asthma N Trauma/Violence N Depression/ depression N Heart Disease N Pre-Eclampsia N Hypertension N Osteoporosis N Thrombophilias N Gynecological History Statement/Question Response Date of Last Pap Smear 11/07/2020 Current Control Method None Date of Last Mammogram 06/16/2020 Date of LMP 08/15/2022 Obstetrics History GPAL:G 1 P 1 0 0 1 Type Value Full Term 1 Living 1 Total 1 Past Encounters Encounter ID Performer Location Encounter Start Date Encounter Closed Date Diagnosis/Indication Diagnosis SNOMED-CT Code Diagnosis ICD10 Code Diagnosis Note [id number] Melanie Montgomery MD [facility] [address] [address] 11/07/2020 17:17:34 11/07/2020 22:21:32 Gynecologic examination 97320078 Z01.419 Z11.51 History of loop electrosurgical excision procedure 9528499311 9102 Z98.890 [id number] Melaine Montgomery MD [facility] [address] [address] 08/30/2022 15:55:20 09/10/2022 15:51:33 Gynecologic examination 01262149 Z01.419 Z11.51 Health Concerns Section Related Observation LastModified by Organization Detai ls LastModified Time None Recorded Concern Status LastModified by Organization Details LastModified Time None Recorded Advance Directives Directive None Recorded Payers Encounter Date Sequence Insurance Name Policy Number Policy Sheldon Covered Member ID Sheldon Member ID Guarantor Name 11/07/2020 1 [place] [id number] Harpal Felton [id number] Harpal Felton 08/30/2022 1 [facility] [id number] Harpal Felton [id number] Harpal R Hites Notes Date Note Type Note Provider Name and Address Organization Details Recorded Time 11/07/2020 text/html Patient is a 45yo who presents for an annual exam. LEEP 2016, last pap ASCUS pos HPV in 2019. Periods are spacing out some, about every 6 weeks. Having a lot of spotting before. No hot flashes yet. mammogram-never sexually active-y contraception-co ndoms seatbelts-y exercise-y, a little depression-denie s domestic violence-denies tobacco-no concerns-none Melanie Montgomery MD [address], [place], [address], [facility] 11/08/2020 09:39:55 08/30/2022 text/html Patient is a [id number] who presents for an annual exam. Leep 2016. ASCUS pos HPV 2019, normal pap 10/2020 last. Periods still regular. Reports BPs wnl everywhere but here, including at PCP.last pap-10/2020mammog jaden-exually active-ycontrace ption-condomssea tbelts-yexercise -ydepression-den iesdomestic violence-deniest obacco-nconcerns - Melanie Montgomery MD [address], [place], [address], [facility] 09/09/2022 21:51:33 OBGyn Episode No OBEpisode recorded.
--- NOTE | 2024-07-23 10:44 | ECG_ITS ---
Test Date: 2024-07-23 10:51:35 Measurements Intervals [place] Rate: 75 P: 3 SD: 100 QRS: 52 QRSD: 92 T: 19 QT: 403 QTc: 451 Interpretive Statements SINUS RHYTHM WITH SHORT SD INTERVAL MINIMAL Q WAVES- LAT/HIGH LAT LEADS BORDERLINE ST ABNORMALITY- ANTEROLAT/INF LEADS BASELINE ARTIFACT- I, III, AVL, V3 BORDERLINE ECG No previous ECG available for comparison Electronically Signed On 07-23-2024 11:05:09 [employer]S SPECIALIST by Jeffery Luciano D.O.
[2024-07-23 11:21] LABS: Basophils Percent Auto 0.7 % (0.2-1.2); Eosinophils Percent Auto 0.2 % (0-4.4); Hematocrit 34.4 % (37.0-47.0); Hemoglobin 10.7 g/dL (12.0-15.0); Immature Granulocyte Absolute 0.02 K/mm3 (0.00-0.031); Immature Granulocyte Percent A 0.5 % (0-0.5); Lymphocytes Absolute Auto 1.35 K/mm3 (0.9-3.2); Mean Corpuscular HGB Conc 31.1 g/dl (32-36); Mean Corpuscular Hemoglobin 24.5 pg (26-34); Mean Corpuscular Volume 78.7 fl (80-100); Mean Platelet Volume 9.1 fl (7.4-10.4); Monocytes Absolute Auto 0.7 K/mm3 (0.1-0.6); Monocytes Percent Auto 14.9 % (2.6-8.5); Neutrophils Absolute Auto 2.3 K/mm3 (1.3-6.7); Neutrophils Percent Auto 52.7 % (45.5-73.1); Platelet Count Result 316 k/mm3 (150-375); Red Blood Count 4.37 M/mm3 (4.2-5.4); Red Cell Distribution Width 14.9 % (11.5-14.5); White Blood Count 4.4 K/mm3 (4.5-10.0)
[2024-07-23 11:29] LABS: Alanine Aminotransferase 22 U/L (6-35); Albumin Level 4.4 g/dL (3.5-5.1); Alkaline Phosphatase 88 U/L (38-126); Anion Gap 9 mmol/L (4-12); Aspartate Amino Transferase 26 U/L (14-36); Bilirubin,Total 0.3 mg/dL (0.2-1.3); Blood Urea Nitrogen 7 mg/dL (7-17); Calcium 9.1 mg/dL (8.4-10.2); Carbon Dioxide 28 mmol/L (22-30); Chloride 100 mmol/L (98-107); Estimated CRCL calculation 119 ml/min; Estimated Glomerular Filt Rate > 60; Glucose 102 mg/dL (65-110); Sodium 137 mmol/L (137-145)
[2024-07-23] MEDS: SODIUM CHLORIDE 0.9% IV 1,000 ML 999 ML IV CONT (12:06)
[2024-07-23 12:09] LABS: BEDSIDEPREGUCG Negative (Negative)
--- NOTE | 2024-07-23 12:27 | ED.GENADULT ---
HPI - General Adult General Chief complaint: Syncope Stated complaint: syncope, sick for a week Time Seen by Provider: 07/23/24 10:43 History of Present Illness HPI narrative: 49-year-old female presenting to the emergency department for evaluation after having a syncopal episode. Patient reports that on and Friday she had flu-like symptoms that did improve over the weekend but then worsened on Friday. Patient states that she felt like she was doing a little bit better yesterday was able to do some activities around the house. Patient states while she was have hot shower today she began to feel dizzy and lightheaded and ultimately had a syncopal episode. Patient's found her lying on the floor and patient was alert and orientated instantly after waking up. Patient states she did not strike her head patient denies any other injury from the fall. At time of evaluation patient denies any pain or complaints and states that she does feel improved. Patient does have history of hypothyroid and does take rocks in for this. Related Data Allergies Allergy/AdvReac Type Severity Reaction Status Date / Time No Known Allergies Allergy Verified 07/23/24 12:16 Review of Systems Review of Systems: All systems reviewed & are unremarkable except as noted in HPI and below PMFSH Past Medical History Medical History Depression Hypothyroidism Family History Family History Mother Family history of bipolar disorder Father Hypertension Social History Social History Smoking status: Never smoker Second hand tobacco smoke exposure: No Alcohol intake: never Substance use: never Substance use type: does not use Lack of Transportation: No Lack of Food: Never True Current Housing: I Have Housing Concerned About Future Housing: No Difficulty Paying Gas/Electric Bills: No Difficulty Paying for Meds: No Currently Unemployed: No Education: Bachelor's Degree Difficulty w/ Childcare or Family Care: No Living arrangements: with family Gender identity (if verbalized by the patient): Female Spiritual care concerns: No Exam Narrative: APPEARANCE: Well appearing, no pain, no distress, well-nourished. HEAD: normocephalic, atraumatic. EYES: PERRLA/EOMI, conjunctivae clear. NOSE: Normal no drainage EARS:TMS clear with good light reflex. THROAT: Pharynx clear, no exudate. NECK: Supple. No adenopathy, no masses. RESPIRATORY: Airway patent, respirations nonlabored. Clear to auscultation bilaterally, no rales, rhonchi, wheezing. CARDIOVASCULAR: Regular rate and rhythm without murmurs rubs or gallops. ABDOMINAL: Soft, nontender, nondistended, normal bowel sounds MUSCULOSKELETAL: Moves all extremities. Strength/ROM intact, No edema, No calf tenderness. NEURO: Alert. Cranial nerves II through XII intact. Good gait. Good coordination SKIN: Warm, dry. Normal Color Course Vital Signs Vital signs: Vital Signs Temperature 97.7 F 07/23/24 09:03 Pulse Rate 79 07/23/24 09:03 Respiratory Rate 14 07/23/24 09:03 Blood Pressure 161/70 H 07/23/24 09:03 Pulse Oximetry 100 07/23/24 09:03 Oxygen Delivery Room Air 07/23/24 09:03 Temperature 98.1 F 07/23/24 11:01 Pulse Rate 79 07/23/24 15:01 Respiratory Rate 18 07/23/24 15:01 Blood Pressure 134/91 H 07/23/24 15:01 Pulse Oximetry 98 07/23/24 15:01 Oxygen Delivery Room Air 07/23/24 09:03 Medical Decision Making [facility] Narrative Medical decision making narrative: 41-year-old female presenting to the emergency department for evaluation after a syncopal episode. Patient declined the head CT. Patient had no cervical spine tenderness no signs of trauma. Patient is currently afebrile with no leukocytosis and hemoglobin of 10.7. This hemoglobin is similar to her baseline. Platelets are normal. No significant acute abnormalities on the patient's CMP preg was negative. EKG showed normal sinus rhythm with short [place] nonspecific ST changes, no evidence of acute STEMI. Patient did test positive for influenza A. Patient was offered admission but patient preferred to be discharged home. Differential Diagnosis Differential Diagnosis: Cardiac CP, syncope, orthostatic hypotension, nausea, vomiting, diarrhea, influenza a, RSV, COVID, pneumonia Vital Signs Vital Signs: Vital Signs Temperature 97.7 F 07/23/24 09:03 Pulse Rate 79 07/23/24 09:03 Respiratory Rate 14 07/23/24 09:03 Blood Pressure 161/70 H 07/23/24 09:03 Pulse Oximetry 100 07/23/24 09:03 Oxygen Delivery Room Air 07/23/24 09:03 Temperature 98.1 F 07/23/24 11:01 Pulse Rate 79 07/23/24 15:01 Respiratory Rate 18 07/23/24 15:01 Blood Pressure 134/91 H 07/23/24 15:01 Pulse Oximetry 98 07/23/24 15:01 Oxygen Delivery Room Air 07/23/24 09:03 Lab Data Lab results reviewed: Yes I reviewed the patient's lab results. 07/23/24 11:09 07/23/24 11:09 Labs: Lab Results 07/23/24 07/23/24 07/23/24 Range/Units 11:09 12:07 12:08 WBC 4.4 L (4.5-10.0) K/mm3 RBC 4.37 (4.2-5.4) M/mm3 Hgb 10.7 L (12.0-15.0) g/dL Hct 34.4 L (37.0-47.0) % MCV 78.7 L (80-100) fl MCH 24.5 L (26-34) pg MCHC 31.1 L (32-36) g/dl RDW 14.9 H (11.5-14.5) % Plt Count 316 (150-375) k/mm3 MPV 9.1 (7.4-10.4) fl Immature Gran % (Auto) 0.5 (0-0.5) % Neut % (Auto) 52.7 (45.5-73.1) % Lymph % (Auto) 31.0 (18.3-44.2) % [place] % (Auto) 14.9 H (2.6-8.5) % Eos % (Auto) 0.2 (0-4.4) % Baso % (Auto) 0.7 (0.2-1.2) % Lymph # (Auto) 1.35 (0.9-3.2) K/mm3 [place] # (Auto) 0.7 H (0.1-0.6) K/mm3 Eos # (Auto) 0.0 (0-0.3) K/mm3 Baso # (Auto) 0.0 (0.0-0.1) K/mm3 Abs Immat Gran (auto) 0.02 (0.00-0.031) K/mm3 Absolute Neuts (auto) 2.3 (1.3-6.7) K/mm3 Absolute Nucleated RBC 0.000 (0.0-0.012) K/mm3 Nucleated RBC % 0.0 (0.0-0.2) % Sodium 137 (137-145) mmol/L Potassium 4.0 (3.4-5.0) mmol/L Chloride 100 (98-107) mmol/L Carbon Dioxide 28 (22-30) mmol/L Anion Gap 9 (4-12) mmol/L BUN 7 (7-17) mg/dL Creatinine 0.48 L (0.7-1.0) mg/dL Estim Creat Clear Calc 119 ml/min Estimated GFR > 60 (59 - ) Glucose 102 (65-110) mg/dL Calcium 9.1 (8.4-10.2) mg/dL Total Bilirubin 0.3 (0.2-1.3) mg/dL AST 26 (14-36) U/L ALT 22 (6-35) U/L Alkaline Phosphatase 88 (38-126) U/L Total Protein 8.0 (6.3-8.2) g/dL Albumin 4.4 (3.5-5.1) g/dL POC Urine HCG, Qual Negative (Negative) Influenza A (RT-PCR) Positive A (Negative) Influenza B (RT-PCR) Negative (Negative) RSV (RT-PCR) Negative (Negative) SARS-CoV-2 RNA (RT-PCR) Negative (Negative) Imaging Data Radiologist's impression: Impressions Chest X-Ray 07/23/24 12:35 IMPRESSION: 1. No acute cardiopulmonary disease. Discharge Plan Discharge Clinical Impression: Influenza A Syncope Qualifiers: Syncope type: unspecified Qualified Code(s): R55 - Syncope and collapse Patient Disposition: Home, Self-Care Condition: Stable Instructions: Antibiotic Form, Syncope (ED), Influenza (DC) Additional Instructions: You were offered admission but preferred to be discharged to home. Tylenol and ibuprofen for fever and for body aches. Tessalon Perles for cough. Have close follow-up with your primary care physician. If you have any worsening symptoms then please call or return to the emergency department. Patient Language: [place] Prescriptions: New benzonatate 100 mg capsule 100 mg PO TID PRN (Reason: cough) Qty: 14 0RF No Action levothyroxine 175 mcg tablet 175 mcg PO DAILY Qty: 90 2RF Follow-up/Referrals: Francoise Phan MD [Primary Care Provider] -
[2024-07-23 12:59] LABS: Influenza A QL RT-PCR Positive (Negative); Influenza B QL RT-PCR Negative (Negative); RSV RNA, RT-PCR Negative (Negative); SARS-CoV-2 RNA PCR Negative (Negative)
== END 2024-07-23 16:00 | disposition home or self-care (01) ==
PROVIDERS: Emergency Provider Emergency Medicine; PCP Family Medicine
DX: J10.1 Influenza due to other identified influenza virus with other respiratory manifestations (principal); R55 Syncope and collapse; E03.9 Hypothyroidism, unspecified; Z20.822 Contact with and (suspected) exposure to COVID-19
CPT/HCPCS: 36415; 71046; 80053; 81025; 85025; 87637; 93005; 96360; 99284; J7030

== ENCOUNTER 2025-05-27 07:16 | Outpatient (CLI) | payer OTHER, SELFPAY ==
--- NOTE | ~2025-05-27 | MM_ITS ---
EXAMINATION: MM screening isabel BI w rohit HISTORY: Screening. TECHNIQUE: Craniocaudal and mediolateral oblique 3-D tomosynthesis images were obtained and synthetic 2-D images were generated. CAD analysis was submitted and interpreted. COMPARISON: 2022 and 2020. BREAST PARENCHYMAL COMPOSITION: Not Dense: There are scattered areas of fibroglandular FINDINGS: No suspicious masses are seen. There are no suspicious calcifications. No unexplained architectural distortion is seen. There are no skin or nipple abnormalities identified. There is no adenopathy seen on the images submitted. IMPRESSION: No mammographic evidence to suggest malignancy is seen. The patient may return to screening mammography as per ACR guidelines. BI-RADS 1 - Negative. Reviewed, dictated and finalized at location C. [employer]
== END 2025-05-27 07:17 | disposition home or self-care (01) ==
LOC: MICIMG 07:17
PROVIDERS: PCP Student in an Organized Health Care Education/Training Program; Visit Provider Student in an Organized Health Care Education/Training Program
DX: Z12.31 Encounter for screening mammogram for malignant neoplasm of breast (principal)
CPT/HCPCS: 77063; 77067